=== PATIENT | female | born 1995 | race American Indian/Alaskan Native ===

== ENCOUNTER 2018-02-19 10:06 | Emergency (ER) | payer SELFPAY ==
[2018-02-19] MEDS ORDERED: NACL 0.9% 1000 ML 1,000 ML IV ONE ×2 (10:19→11:24)
[2018-02-19 10:43] LABS: Basophils % (Auto) 0.3 % (0.0-1.8); Eosinophils # (Auto) 0.1 K/mm3 (0.0-0.4); Eosinophils % (Auto) 0.5 % (0.0-4.3); Hematocrit 36.7 % (30.3-42.9); Hemoglobin 11.8 gm/dl (10.1-14.3); Lymphocytes # (Auto) 0.9 K/mm3 (1.2-5.4); Lymphocytes % (Auto) 8.7 % (13.4-35.0); Mean Corpuscular HGB Conc 32 % (30-34); Mean Corpuscular Hemoglobin 28 pg (28-32); Mean Corpuscular Volume 86 fl (79-97); Monocytes # (Auto) 0.8 K/mm3 (0.0-0.8); Monocytes % (Auto) 8.1 % (0.0-7.3); Platelet Count 403 K/mm3 (140-440); Red Blood Count 4.28 M/mm3 (3.65-5.03); Red Cell Distribution Width 15.8 % (13.2-15.2)
[2018-02-19 11:01] LABS: Alanine Aminotransferase 12 units/L (7-56); Albumin 3.6 g/dL (3.9-5); BUN/Creatinine Ratio 20; Blood Urea Nitrogen 12 mg/dL (7-17); Calcium 9.3 mg/dL (8.4-10.2); Hemolysis Index 9
--- NOTE | 2018-02-19 12:33 | Emergency Department Report ---
HPI - General Chief Complaint: Syncope Time Seen by Provider: 02/19/18 11:23 - HPI HPI: The patient is a 23-year-old female who presents for evaluation of syncope. The patient reports passing out at a bus stop +30 minutes prior to arrival. She states that she experienced severe lightheadedness while walking to the bus stop, approximately 1 hour prior to arrival, exacerbated with exertion, improved with lying down and rests. She admits to not consuming any water or food this morning pressure [address] stop. The patient denies fever, head injury, headache, neck pain, neck stiffness, chest pain, dyspnea, abdominal pain , back pain, pain to the major joints, vision or hearing changes, smell or taste changes, paresthesias, facial drooping, slurred speech, seizure-like activity, urine or bowel incontinence or retention, or other focal neurological deficit. ED Past Medical Hx - Past Medical History Previous Medical History?: Yes Additional medical history: Ulcerative Colitis - Surgical History Past Surgical History?: No - Social History Smoking Status: Current Every Day Smoker Substance Use Type: Marijuana ED Review of Systems ROS: Stated complaint: PASSED OUT Other details as noted in HPI Constitutional: reports syncope denies: fever ENT: denies: throat or neck pain Respiratory: denies: cough, shortness of breath Cardiovascular: denies: chest pain Endocrine: denies unexplained weight loss or gain Gastrointestinal: denies: abdominal pain, nausea Genitourinary: denies: dysuria Musculoskeletal: denies: leg swelling Skin: denies: rash Neurological: denies: headache Hematological/Lymphatic: denies: easy bleeding or easy bruising Psych: denies sadness or hopelessness Physical Exam - Physical Exam Vital Signs: Vital Signs 02/19/18 10:11 Temperature 97.5 F L Pulse Rate 109 H Respiratory 18 Rate Blood Pressure 88/40 O2 Sat by Pulse 100 Oximetry Physical Exam: General: well-nourished, well-developed, no acute distress Head: Normocephalic, atraumatic Eyes: normal sclera ENT: Mucous membranes are pale and dry Neck: No neck stiffness, no cervical adenopathy Respiratory: Breath sounds equal bilaterally, no wheezing, rales, or rhonchi Cardio: S1 and S2 present, no murmurs, rubs, gallops, capillary refill is delayed Abdomen: Normoactive bowel sounds, soft abdomen, no tenderness Chest WALL/Back: No tenderness to palpation of the chest wall, no CVA tenderness with percussion Musc: No pitting edema Skin: No rash Neuro: no facial drooping, normal speech Psych: Normal affect ED Course Vital Signs 02/19/18 10:11 Temperature 97.5 F L Pulse Rate 109 H Respiratory 18 Rate Blood Pressure 88/40 O2 Sat by Pulse 100 Oximetry ED Medical Decision Making - Lab Data Result diagrams: 02/19/18 10:29 02/19/18 10:29 - Medical Decision Making The patient was seen and examined by myself. The patient is placed on a monitor tech and continuous pulse ox. On initial evaluation, the patient was found to be in no distress. Evaluation orders were placed. Normal saline fluid bolus was ordered for treatment of the patient's dehydration and hypovolemia. The patient refused fluid bolus. Lab results were grossly unrevealing including negative preg test. EKG was negative for arrhythmia, findings of WPW , HCM, or Brugada. On reevaluation the patient is found to remain hypotensive. The patient is informed of risks of refusal of fluid resuscitation, further care/stabilization, and signing out AGAINST MEDICAL ADVICE, including potential risk of recurrence of syncope, head injury, stroke, cardiac arrest, and , versus benefits of further treatment and stablization. The patient is informed of treatment options and outside facility options for futher treatment and definitive stablization. The patient is alert oriented 3, able to verbalize her treatment options and benefits of treatments, versus risks of refusal of further care, and as such the patient is competent to make medical decisions. She signs out AGAINST MEDICAL ADVICE. Critical care attestation.: If time is entered above; I have spent that time in minutes in the direct care of this critically ill patient, excluding procedure time. ED Disposition Clinical Impression: Dehydration, Hypovolemia due to dehydration Syncope Qualifiers: Syncope type: unspecified Qualified Code(s): R55 - Syncope and collapse Disposition: DC-07 LEFT AGAINST MED ADVICE Is pt being admited?: No Does the pt Need Aspirin: No Condition: Serious Instructions: Syncope (ED) Referrals: PRIMARY CARE, [Primary Care Provider] - 3-5 Days Forms: Accompanied Note, Work/School Release Form(ED) Time of Disposition: 12:32
[2018-02-19 12:37] VITALS: BP 86/48
== END 2018-02-19 12:34 | disposition left against medical advice (07) ==
LOC: ED 10:06
DX: E86.1 Hypovolemia (principal); E86.0 Dehydration; R55 Syncope and collapse; F17.200 Nicotine dependence, unspecified, uncomplicated; F12.10 Cannabis abuse, uncomplicated; Z88.6 Allergy status to analgesic agent
CPT/HCPCS: 36415; 80053; 83690; 84703; 85025; 93005; 93010; 99284; G0480; 80320